=== PATIENT | female | born 1995 | race African-American/Black ===

== ENCOUNTER 2020-12-18 18:21 | Outpatient (CLI) | payer OTHER ==
[~2020-12-18] VITALS: Ht 157.5 cm; Wt 65.8 kg
[2020-12-18 18:37] VITALS: BP 137/75
[2020-12-18 18:51] LABS: BILIRUBIN,URINE NEGATIVE (NEGATIVE); CLARITY,URINE CLEAR; COLOR,URINE YELLOW; GLUCOSE, URINE (UA) NEGATIVE (NEGATIVE); KETONES,URINE NEGATIVE (NEGATIVE); LEUKOCYTE ESTERASE ,URINE TRACE (NEGATIVE); NITRITE,URINE NEGATIVE (NEGATIVE); PROTEIN,URINE NEGATIVE (NEGATIVE)
[2020-12-18] MEDS ORDERED: PNV11TAB5 PO (18:54)
[2020-12-18] MEDS ORDERED: DOXY25TA56 PO (18:54)
[2020-12-18 19:06] VITALS: BP 137/75
[2020-12-18 19:08] VITALS: BP 137/75
[2020-12-18 19:15] LABS: BACTERIA,URINE TRACE /HPF; WBC,URINE 0-2 /HPF
[2020-12-18 19:20] VITALS: BP 116/63
--- NOTE | 2020-12-20 07:37 | Physician Query-Final Dx ---
VILLA LIANG 12/20/20 0737: Clinic Account Progress/Dx Physician Query: Please give diagnosis Please include # weeks gestation Date of Service Dec 18, 2020 at 18:21 ELDA WRIGHT MD 12/21/20 0638: Clinic Account Progress/Dx DIAGNOSIS: Diagnosis 1. IUP in 3rd trimester 2. Uterine irritability without labor VILLA LIANG Dec 20, 2020 07:37 ELDA WRIGHT MD Dec 21, 2020 06:38
== END 2020-12-18 19:45 | disposition home or self-care (01) ==
LOC: EDBD 18:21 → WSo 18:21 → LDRP 18:22 → WSo 19:45
PROVIDERS: ATTEND Family Medicine
DX: O26.892 Other specified pregnancy related conditions, second trimester (principal); Z3A.22 22 weeks gestation of pregnancy
CPT/HCPCS: 81000; G0463; 99212

== ENCOUNTER 2021-03-17 17:53 | Outpatient (CLI) | payer OTHER ==
[~2021-03-17] VITALS: Ht 157.5 cm; Wt 71.1 kg
[~2021-03-17 17:53] MED LIST: DOXY25TA56 PO; PNV11TAB5 PO
[2021-03-17] MEDS ORDERED: PROG200C10 PO (18:10)
[2021-03-17 18:12] VITALS: BP 109/69
[2021-03-17 18:18] LABS: BILIRUBIN,URINE NEGATIVE (NEGATIVE); CLARITY,URINE CLEAR; COLOR,URINE YELLOW; GLUCOSE, URINE (UA) NEGATIVE (NEGATIVE); KETONES,URINE NEGATIVE (NEGATIVE); LEUKOCYTE ESTERASE ,URINE 1+ (NEGATIVE); NITRITE,URINE NEGATIVE (NEGATIVE); PH,URINE 6.5 (5-9); PROTEIN,URINE NEGATIVE (NEGATIVE)
[2021-03-17 18:51] LABS: RBC,URINE 0-2 /HPF
[2021-03-17 18:53] LABS: AMORPHOUS SEDIMENT,UR MOD AMOR URATES /LPF; BACTERIA,URINE FEW /HPF
[2021-03-17] MEDS ORDERED: hydrOXYzine (VISTARIL/ATARAX) 25 MG capsule/tablet PO NR (19:00)
[2021-03-17 20:00] VITALS: BP 109/73
--- NOTE | 2021-03-18 09:33 | Physician Query-Final Dx ---
Clinic Account Progress/Dx Physician Query: Please give diagnosis Please include # weeks gestation Date of Service Mar 17, 2021 at 17:53 VILLA LIANG Mar 18, 2021 09:33
== END 2021-03-17 20:15 | disposition home or self-care (01) ==
LOC: WSo 17:53 → LDRP 17:54 → WSo 20:15
PROVIDERS: ATTEND Family Medicine
DX: Z34.93 Encounter for supervision of normal pregnancy, unspecified, third trimester (principal); Z3A.35 35 weeks gestation of pregnancy
CPT/HCPCS: 81000; G0463; 99213

== ENCOUNTER 2021-03-19 22:26 | Outpatient (CLI) | payer OTHER ==
[~2021-03-19] VITALS: Ht 157.5 cm; Wt 71.3 kg
[~2021-03-19 22:26] MED LIST changes: +PROG200C10 PO
[2021-03-19 22:45] VITALS: BP 118/75
[2021-03-19 22:56] LABS: BILIRUBIN,URINE NEGATIVE (NEGATIVE); CLARITY,URINE CLEAR; COLOR,URINE YELLOW; GLUCOSE, URINE (UA) NEGATIVE (NEGATIVE); KETONES,URINE NEGATIVE (NEGATIVE); LEUKOCYTE ESTERASE ,URINE NEGATIVE (NEGATIVE); NITRITE,URINE NEGATIVE (NEGATIVE); PROTEIN,URINE NEGATIVE (NEGATIVE)
[2021-03-19 23:03] LABS: BACTERIA,URINE NEGATIVE /HPF; RENAL EPITHELIAL CELLS,URINE 0-2 /HPF; WBC,URINE 0-2 /HPF
--- NOTE | 2021-03-21 08:01 | Physician Query-Final Dx ---
Clinic Account Progress/Dx Physician Query: Please give diagnosis Please include # weeks gestation Date of Service Mar 19, 2021 at 22:26 VILLA LIANG Mar 21, 2021 08:01
== END 2021-03-19 23:45 ==
LOC: LDRP 22:26 → WSo 22:26
PROVIDERS: ATTEND Family Medicine
DX: O26.853 Spotting complicating pregnancy, third trimester (principal); Z3A.35 35 weeks gestation of pregnancy
CPT/HCPCS: 81000

== ENCOUNTER 2021-04-05 15:49 | Inpatient (IN) | payer OTHER ==
[2021-04-05] VITALS (41 sets, daily range): BP systolic 95–151; BP diastolic 50–79
[2021-04-05] MEDS ORDERED: MINERAL OIL CONCENTRATE 99.9% 15 ML UDC TOP PRN (16:00)
[2021-04-05 16:49] LABS: BASOPHILS % (AUTO) 0 % (0-10); EOSINOPHILS % (AUTO) 0 % (0-10); HEMATOCRIT 38 % (35-52); HEMOGLOBIN 12.1 g/dL (11.5-16.0); LYMPHOCYTES # (AUTO) 2.5 10^3/uL (1.0-4.0); LYMPHOCYTES % (AUTO) 26 % (12-44); MEAN CORPUSCULAR HEMOGLOBIN 27 pg (25-34); MEAN CORPUSCULAR HGB CONC 32 g/dL (32-36); MEAN CORPUSCULAR VOLUME 85 fL (80-99); MEAN PLATELET VOLUME 11.7 fL (9.0-12.2); MONOCYTES # (AUTO) 0.7 10^3/uL (0.0-1.0); MONOCYTES % (AUTO) 7 % (0-12); NEUTROPHILS # (AUTO) 6.2 10^3/uL (1.8-7.8); NEUTROPHILS % (AUTO) 65 % (42-75); PLATELET COUNT 265 10^3/uL (130-400); WHITE BLOOD COUNT 9.5 10^3/uL (4.3-11.0)
[2021-04-05] MEDS: D5 LR IV SOLUTION 1,000 ML IV SCH (17:01)
[2021-04-05] MEDS ORDERED: fentaNYL 2 mcg/ml BUPIVA 0.125 100 ML ONE (18:19)
[2021-04-05] MEDS ORDERED: BUPIVACAINE 0.25% 30 ML (SENSORCAINE) VIAL ONE (19:45)
[2021-04-05] MEDS ORDERED: LACTATED RINGERS 1,000 ML IV ONE (19:45)
[2021-04-05] MEDS ORDERED: fentaNYL INJ 100 MCG/2 ML AMP ONE (19:45)
[2021-04-05] MEDS ORDERED: NALOXONE 0.4 MG/ML 1 ML (NARCAN) VIAL IV PRN ×2 (20:15)
[2021-04-05] MEDS ORDERED: diphenhydrAMINE 50 MG/ML INJ (BENADRYL) IV PRN (20:15)
[2021-04-05] MEDS ORDERED: ONDANSETRON 4 MG/2 ML (SDV) Z0FRAN IV PRN (20:15)
[2021-04-05] MEDS ORDERED: LACTATED RINGERS 1,000 ML IV SCH (20:15)
[2021-04-05] MEDS ORDERED: METOCLOPRAMIDE INJ 10 MG/2 ML (REGLAN) IV PRN (20:15)
[2021-04-05] MEDS: EPIDURAL (fentaNYL 2 MCG/ML BUPIVA 0.125%)100 ML BAG EPI PRN (20:45)
[2021-04-05] MEDS ORDERED: CATHETER FLUSH 10 ML SYR IV SCH (22:00)
[2021-04-06] VITALS (76 sets, daily range): BP systolic 88–174; BP diastolic 50–81
[2021-04-06] MEDS: D5 LR IV SOLUTION 1,000 ML IV SCH ×2 (00:35→08:34)
[2021-04-06] MEDS: EPIDURAL (fentaNYL 2 MCG/ML BUPIVA 0.125%)100 ML BAG EPI PRN ×2 (04:24→12:54)
--- NOTE | 2021-04-06 08:56 | History & Physical-OB ---
OB - Chief Complaint & HPI Date/Time Date of Admission: Date of Admission: Apr 05, 2021 at 15:49 Date seen by a Provider: Apr 06, 2021 Time Seen by a Provider: 08:53 Chief Complaint/History OB-Reason for Admission/Chief: Onset of Labor Hx : 2 Hx Para: 1 Expected Date of Delivery: Apr 18, 2021 Gestational Age in Weeks: 38 Gestational Age in Days: 1 History of Labs O+, Ab neg, Rub Imm, HIV/RPR/HepB/C NR Normal 1 hr GTT GC/Chyl Neg GBS Neg Allergies and Home Medications Allergies Coded Allergies: Penicillins (Unverified Allergy, Unknown, swelling, 12/18/20) Home Medications Vpy422/FA/Omega3/Dha/Fish Oil 1 Each Tab.chew, 1 EACH PO DAILY, (Reported) Last Action: Reviewed Patient Home Medication List Home Medication List Reviewed: Yes OB - History Hx of Present Care: Yes Ultrasounds: Normal mid trimester US Obstetrical Complications: None Medical Complications: None Information Induced Hypertension: No Maternal Gestational Diabetes: No Hemorrhage: No Obstetrical History Hx : 2 Hx Para: 1 Hx # Pregnancies: 1 Number of Living Children: 1 Patient Past Medical History None Social History/Family History Alcohol Use: Denies Use Smoking Cessation: Never smoker 2nd Hand Smoke Exposure: No Immunizations Tetanus Booster (TDap): Less than 5yrs Date of Influenza Vaccine: Aug 19, 2020 Rubella: immune RPR/VDRL: Negative GBS Status: Negative HBsAG: Negative OB - Admission Exam Physical Exam Vitals: Vital Signs 04/06/21 04/06/21 07:12 07:45 Temp 36.8 Pulse 105 Resp 18 B/P (MAP) 116/67 (83) Pulse Ox 98 O2 Delivery Room Air HEENT: NCAT Heart: Rhythm Normal Lungs: Clear Abdomen: Gravid Cervical Dilatation: 5cm Effacement: 75% Station: -1 Membranes: Intact Accelerations: Accelerations Present Decelerations: No Decelerations Hand Stonecutter Variability: Average (6-25) Contractions on Admission: < 5 Minutes Apart Intensity: Moderate Labs Laboratory Tests Test 04/05/21 16:15 Range/Units White Blood Count 9.5 4.3-11.0 10^3/uL Red Blood Count 4.45 3.80-5.11 10^6/uL Hemoglobin 12.1 11.5-16.0 g/dL Hematocrit 38 35-52 % Mean Corpuscular Volume 85 80-99 fL Mean Corpuscular Hemoglobin 27 25-34 pg Mean Corpuscular Hemoglobin Concent 32 32-36 g/dL Red Cell Distribution Width 14.8 H 10.0-14.5 % Platelet Count 265 130-400 10^3/uL Mean Platelet Volume 11.7 9.0-12.2 fL Immature Granulocyte % (Auto) 2 % Neutrophils (%) (Auto) 65 42-75 % Lymphocytes (%) (Auto) 26 12-44 % Monocytes (%) (Auto) 7 0-12 % Eosinophils (%) (Auto) 0 0-10 % Basophils (%) (Auto) 0 0-10 % Neutrophils # (Auto) 6.2 1.8-7.8 10^3/uL Lymphocytes # (Auto) 2.5 1.0-4.0 10^3/uL Monocytes # (Auto) 0.7 0.0-1.0 10^3/uL Eosinophils # (Auto) 0.0 0.0-0.3 10^3/uL Basophils # (Auto) 0.0 0.0-0.1 10^3/uL Immature Granulocyte # (Auto) 0.1 0.0-0.1 10^3/uL OB - Assessment/Plan/Diagnosis Assessment Assessment: active labor Admission Dx Third trimester 38 week gestation Admission Status: Inpatient Order (span 2 midnights) Reason for Inpatient Admission: Labor Plan Other Plan 25 yo @ 38.1 wga here in active labor Plan - Expectant management - GBS neg - Desires Epidural - AROM clear Copy Copies To 1: MARIO CARR MD, HOLLY R MD Apr 06, 2021 08:56
[2021-04-06] MEDS ORDERED: OXYTOCIN PRE-MIX DRIP 500 ML IV ONE (09:59)
[2021-04-06] MEDS ORDERED: OXYTOCIN PRE-MIX DRIP 500 ML IV SCH ×2 (10:00→14:15)
[2021-04-06] MEDS ORDERED: WITCH HAZEL(TUCKS) 40 EA JAR TOP PRN (14:15)
[2021-04-06] MEDS ORDERED: BENZOCAINE/MENTHOL (DERMOPLAST) 56 ML CAN TP PRN (14:15)
[2021-04-06] MEDS ORDERED: MEASLES,MUMPS,RUBELLA 1 EA INJ SQ ONE (14:15)
--- NOTE | 2021-04-06 14:15 | OB Labor & Delivery Record ---
Vag Delivery Note Vag Delivery Note Date of Delivery: 04/06/21 Preoperative Diagnosis: Haley Burciaga is a (25 /Para 2 / 1, Gestational Age (wks)38.1 wga here in active Labor Postoperative Diagnosis: Same Surgeon: MARIO CARR Tobacco Checkout Clerk: None Anesthesia: Epidural Delivery Type: @ 1341 Findings: Viable Male , apgars 9/9, weight 7#10, 3455 grams Lacerations: None Intact placenta with 3 vessel cord. No nuchal cord, body cord or shoulder dystocia Estimated Blood Loss: 125 ml Complications: None Condition: Stable Description of Procedure: The patient is a 25 year old female who presented in active labor. She was admitted and informed consent was obtained. Her labor course was unremarkable. She progressed to complete dilatation and began to push. She was then set up for delivery. The infant's head was delivered atraumatically in the TOMAS position. The shoulders and remainder of the infant's body were then delivered without difficulty. Upon delivery, the head was held below the level of the perineum and the mouth and nares were bulb suctioned. The cord was doubly clamped after 2 min delay and cut by FOB and the infant was placed on maternal abdomen and attended to by the pediatric staff. An intact placenta with 3-vessel cord delivered via Iron and there was found to be minimal bleeding.~ Vigorous fundal massage was performed and the fundus was found to be firm. IV oxytocin was given. Examination of the vagina and perineum revealed no lacerations that require repair. Following the repair, sponge, instrument and needle counts were correct. Mom and baby were both in stable condition in the labor suite. Vitals - Labs Vital Signs - I&O Vital Signs Date Time Temp Pulse Resp B/P (MAP) Pulse Ox O2 Delivery O2 Flow Rate FiO2 04/06/21 12:00 36.9 90 18 120/69 (86) Room Air 04/06/21 11:45 91 18 106/60 (75) Room Air 04/06/21 11:30 91 18 111/58 (75) Room Air 04/06/21 11:15 85 18 106/55 (72) Room Air 04/06/21 11:00 86 18 105/59 (74) Room Air 04/06/21 10:45 85 18 96/53 (67) Room Air 04/06/21 10:30 88 18 93/52 (66) Room Air 04/06/21 10:17 83 18 98/58 (71) Room Air 04/06/21 10:15 36.9 89 18 88/53 (65) Room Air 04/06/21 10:00 89 18 98/60 (73) Room Air 04/06/21 09:45 90 18 114/72 (86) Room Air 04/06/21 09:30 36.7 89 18 109/69 (82) Room Air 04/06/21 09:15 94 18 108/64 (79) Room Air 04/06/21 09:00 97 18 111/63 (79) Room Air 04/06/21 08:45 96 18 105/63 (77) Room Air 04/06/21 08:30 104 18 104/62 (76) Room Air 04/06/21 08:15 99 18 121/62 (81) Room Air 04/06/21 07:58 87 18 119/66 (83) Room Air 04/06/21 07:45 105 18 116/67 (83) Room Air 04/06/21 07:30 98 18 116/69 (85) Room Air 04/06/21 07:12 36.8 88 18 116/66 (83) 98 Room Air 04/06/21 07:00 108 18 116/62 (80) Room Air 04/06/21 06:45 99 18 114/60 (78) Room Air 04/06/21 06:30 37.0 89 18 116/61 (79) Room Air 04/06/21 06:15 94 18 109/64 (79) Room Air 04/06/21 06:00 106 18 103/55 (71) Room Air 04/06/21 05:45 104 18 107/55 (72) Room Air 04/06/21 05:30 102 18 104/54 (71) Room Air 04/06/21 05:15 92 18 106/59 (75) Room Air 04/06/21 05:00 96 18 106/57 (73) Room Air 04/06/21 04:45 90 18 105/60 (75) Room Air 04/06/21 04:30 36.7 88 18 108/67 (81) Room Air 04/06/21 04:15 90 18 105/63 (77) Room Air 04/06/21 04:00 102 18 115/66 (82) Room Air 04/06/21 03:45 87 18 116/65 (82) Room Air 04/06/21 03:30 95 18 119/74 (89) Room Air 04/06/21 03:15 85 18 113/65 (81) Room Air 04/06/21 03:00 116 18 106/62 (77) Room Air 04/06/21 02:45 102 18 112/64 (80) Room Air 04/06/21 02:30 36.8 88 18 115/64 (81) Room Air 04/06/21 02:15 91 18 109/59 (76) Room Air 04/06/21 02:00 107 18 101/65 (77) Room Air 04/06/21 01:45 92 18 102/59 (73) Room Air 04/06/21 01:30 89 18 108/55 (72) Room Air 04/06/21 01:15 83 18 99/54 (69) Room Air 04/06/21 01:00 91 18 101/59 (73) Room Air 04/06/21 00:45 91 18 108/60 (76) Room Air 04/06/21 00:30 91 18 95/55 (68) Room Air 04/06/21 00:15 90 18 94/53 (67) Room Air 04/06/21 00:00 18 Room Air 04/06/21 00:00 100 18 95/50 (65) Room Air 04/05/21 23:45 94 18 97/52 (67) Room Air 04/05/21 23:30 89 18 101/50 (67) Room Air 04/05/21 23:15 92 18 108/51 (70) Room Air 04/05/21 23:00 93 18 99/55 (70) Room Air 04/05/21 22:45 36.8 89 18 102/56 (71) Room Air 04/05/21 22:30 86 18 111/73 (86) Room Air 04/05/21 22:15 95 18 103/66 (78) Room Air 04/05/21 22:00 110 18 105/68 (80) Room Air 04/05/21 21:45 90 18 104/61 (75) Room Air 04/05/21 21:30 36.1 88 18 104/62 (76) Room Air 04/05/21 21:28 107 18 106/63 (77) 99 Room Air 04/05/21 21:15 83 18 112/57 (75) Room Air 04/05/21 21:00 107 18 105/65 (78) 99 Room Air 04/05/21 20:45 86 18 100/61 (74) 100 Room Air 04/05/21 20:30 104 18 100/58 (72) 99 Room Air 04/05/21 20:26 90 18 109/65 (80) 99 Room Air 04/05/21 20:18 95 18 112/67 (82) 98 Room Air 04/05/21 20:15 112 18 95/57 (70) 98 Room Air 04/05/21 20:13 97 18 111/67 (82) 100 Room Air 04/05/21 20:09 98 18 122/75 (91) 100 Room Air 04/05/21 20:03 117 18 113/70 (84) 100 Room Air 04/05/21 20:00 35.9 99 18 115/67 (83) 100 Room Air 04/05/21 19:58 133 18 109/59 (76) 99 Room Air 04/05/21 19:56 99 18 110/59 (76) 99 Room Air 04/05/21 19:54 115 18 107/61 (76) 99 Room Air 04/05/21 19:51 118 18 105/60 (75) 99 Room Air 04/05/21 19:49 110 18 100/65 (77) 100 Room Air 04/05/21 19:47 93 18 111/63 (79) 99 Room Air 04/05/21 19:46 110 18 112/60 (77) 99 Room Air 04/05/21 19:45 104 18 151/67 (95) 99 Room Air 04/05/21 19:41 108 18 122/75 (91) 98 Room Air 04/05/21 19:38 109 18 117/69 (85) 98 Room Air 04/05/21 19:35 100 18 123/70 (87) 98 Room Air 04/05/21 19:32 94 18 126/71 (89) 99 Room Air 04/05/21 19:30 103 18 139/71 (93) 99 Room Air 04/05/21 18:06 88 18 117/69 (85) Room Air 04/05/21 17:38 90 18 116/75 (89) Room Air 04/05/21 17:35 36.9 04/05/21 17:05 88 18 125/78 (94) Room Air 04/05/21 16:47 36.9 102 18 98 Room Air 04/05/21 16:42 36.9 04/05/21 16:36 102 18 125/78 (94) Room Air 04/05/21 16:05 94 18 121/79 (93) Room Air I & O 04/06/21 07:00 Intake Total 2000 ml Balance 2000 ml Labs Laboratory Tests 04/05/21 16:15: White Blood Count 9.5, Red Blood Count 4.45, Hemoglobin 12.1, Hematocrit 38, Mean Corpuscular Volume 85, Mean Corpuscular Hemoglobin 27, Mean Corpuscular Hemoglobin Concent 32, Red Cell Distribution Width 14.8H, Platelet Count 265, Mean Platelet Volume 11.7, Immature Granulocyte % (Auto) 2, Neutrophils (%) (Auto) 65, Lymphocytes (%) (Auto) 26, Monocytes (%) (Auto) 7, Eosinophils (%) (Auto) 0, Basophils (%) (Auto) 0, Neutrophils # (Auto) 6.2, Lymphocytes # (Auto) 2.5, Monocytes # (Auto) 0.7, Eosinophils # (Auto) 0.0, Basophils # (Auto) 0.0, Immature Granulocyte # (Auto) 0.1 MARIO CARR MD Apr 06, 2021 14:15
[2021-04-06] MEDS: IBUPROFEN 600 MG (MOTRIN) TAB PO SCH (17:57)
[2021-04-06] MEDS ORDERED: CATHETER FLUSH 10 ML SYR IV SCH (22:00)
[2021-04-06] MEDS ORDERED: ACETAMINOPHEN 500 MG TAB (TYLENOL) PO SCH (22:00)
[2021-04-07 00:20] VITALS: BP 102/59
[2021-04-07] MEDS: DOCUSATE SODIUM 100 MG (COLACE) CAP PO SCH ×2 (00:22→09:34)
[2021-04-07] MEDS: IBUPROFEN 600 MG (MOTRIN) TAB PO SCH ×3 (00:22→12:39)
[2021-04-07 05:20] VITALS: BP 107/56
[2021-04-07 06:33] LABS: BASOPHILS # (AUTO) 0.1 10^3/uL (0.0-0.1); BASOPHILS % (AUTO) 0 % (0-10); EOSINOPHILS # (AUTO) 0.1 10^3/uL (0.0-0.3); EOSINOPHILS % (AUTO) 1 % (0-10); HEMATOCRIT 36 % (35-52); HEMOGLOBIN 11.1 g/dL (11.5-16.0); LYMPHOCYTES # (AUTO) 3.4 10^3/uL (1.0-4.0); LYMPHOCYTES % (AUTO) 22 % (12-44); MEAN CORPUSCULAR HEMOGLOBIN 27 pg (25-34); MEAN CORPUSCULAR HGB CONC 31 g/dL (32-36); MEAN CORPUSCULAR VOLUME 87 fL (80-99); MEAN PLATELET VOLUME 11.6 fL (9.0-12.2); MONOCYTES # (AUTO) 1.6 10^3/uL (0.0-1.0); MONOCYTES % (AUTO) 11 % (0-12); NEUTROPHILS # (AUTO) 9.9 10^3/uL (1.8-7.8); NEUTROPHILS % (AUTO) 65 % (42-75); PLATELET COUNT 247 10^3/uL (130-400); WHITE BLOOD COUNT 15.3 10^3/uL (4.3-11.0)
[2021-04-07] MEDS ORDERED: PRENATAL VITAMIN 1 EA TAB PO SCH (07:00)
[2021-04-07 09:00] VITALS: BP 98/51
[2021-04-07 12:30] VITALS: BP 113/54
--- NOTE | 2021-04-07 15:00 | Discharge Summary ---
Diagnosis/Chief Complaint Date of Admission Apr 05, 2021 at 15:49 Date of Discharge Discharge Summary-Simple/Stand Discharge Physical Examination Allergies: Coded Allergies: Penicillins (Unverified Allergy, Unknown, swelling, 12/18/20) Vitals & I&Os Vital Sign - Last 12Hours Date Time Temp Pulse Resp B/P (MAP) Pulse Ox O2 Delivery O2 Flow Rate FiO2 04/07/21 12:30 36.4 87 18 113/54 (73) 98 Room Air Intake and Output 04/06/21 23:59 Output Total 400 ml Balance -400 ml Hospital Course See final discharge diagnosis. Discharge Instructions to patient/family Please see electronic discharge instructions given to patient. Discharge Medications Reviewed and agree with Discharge Medication list on patient's Discharge Instruction sheet MARIO CARR MD Apr 07, 2021 15:00
[2021-04-07] MEDS ORDERED: IBUP-844 PO (15:01)
--- NOTE | 2021-04-07 15:01 | Discharge Summary ---
Discharge Inst-[facility] Reconcile Patient Problems Problems Reviewed?: Yes Depart Medications New, Converted or Re-Newed RX: Transmitted to Pharmacy New Medications: Ibuprofen (Ibu) 600 Mg Tablet 600 MG PO Q6HR, #90 TAB Continued Medications: Fql202/FA/Omega3/Dha/Fish Oil ( Gummies) 1 Each Tab.chew 1 EACH PO DAILY, TAB Follow Up/Instructions Goal/Follow Up: 6 week post visit with Dr Wang Activity Activity: Activity as Tolerated Driving Instructions: You May Drive NO SMOKING: NO SMOKING Nothing Inside Vagina: No Douching, No [place], No Tampons Diet Discharge Diet: No Restrictions Symptoms to Report to : Swelling Increased, Bleeding Excessive, Pain Increased, Fever Over 101 Degrees F For Any Problems or Questions: Contact Your Physician Copies To 1: MARIO WANG MD, HOLLY R MD Apr 07, 2021 15:01
[2021-04-07 16:00] VITALS: BP 113/54
== END 2021-04-07 16:00 | disposition home or self-care (01) | DRG 807 ==
LOC: LDRP 15:49
PROVIDERS: ADMIT Family Medicine; ATTEND Family Medicine
PROC: 10E0XZZ Delivery of Products of Conception, External Approach (ICD-10-PCS; principal; 2021-04-06)
DX: O80 Encounter for full-term uncomplicated delivery (principal); Z37.0 Single live birth; Z3A.38 38 weeks gestation of pregnancy
CPT/HCPCS: 36415; 85025; 86850; 86900; 86901; 99212